=== PATIENT | female | born 1985 | race Caucasian/White ===

== ENCOUNTER → 2021-04-22 14:06 | Outpatient (CLI) | payer OTHER, SELFPAY ==
[2021-04-22 14:55] LABS: COVID19 -Nasal RAPID POSITIVE (Negative)
== END ==
PROVIDERS: Visit Provider Physician Assistant
DX: U07.1 COVID-19 (principal); Z20.822 Contact with and (suspected) exposure to COVID-19
CPT/HCPCS: 87635

== ENCOUNTER 2022-04-21 13:58 | Emergency (ER) | payer OTHER, SELFPAY ==
[2022-04-21 14:08] VITALS: BP 158/95; PULSE 98; RESP 17; TEMP 36.5; O2SAT 98; BMI 31.1
--- NOTE | 2022-04-21 14:17 | DI.RAD.S_ITS ---
PROCEDURE: XR CHEST 2V INDICATIONS: cough TECHNIQUE: 2 views of the chest were acquired. COMPARISON: None. FINDINGS: Surgical changes and devices: None. Lungs and pleura: Lungs are clear. No pleural effusions or pneumothorax. Mediastinum: Mediastinal contours are normal. Heart size is normal. Bones and chest wall: No suspicious bony abnormalities. Soft tissues appear unremarkable. IMPRESSION: No acute cardiopulmonary process demonstrated radiographically. Dictated by: Patrick Best M.D. on 04/21/2022 at 14:42 Approved by: Patrick Best M.D. on 04/21/2022 at 14:42
[2022-04-21 15:04] LABS: Influenza A - CEPHEID Flu A NEGATIVE (NEGATIVE); Influenza B - CEPHEID Flu B NEGATIVE (NEGATIVE); Respiratory Syncytial Virus Negative (Negative)
[2022-04-21 15:06] LABS: COVID-19 CEPHEID 4-PLEX PCR Negative (Negative)
--- NOTE | 2022-04-21 18:31 | ED_ITS ---
HPI - General Adult General Chief complaint: Upper Respiratory Symptoms Stated complaint: x7 chest pain, cant catch breath, Time Seen by Provider: 04/21/22 18:07 Source: patient Mode of arrival: Ambulatory History of Present Illness HPI narrative: 36-year-old female with a history of asthma who has had about 7 days of burning in her chest and coughing. She took a leftover Z-Elmer that she had at home because she thought that she had bronchitis but it did not improve any of her symptoms. She is still coughing and wheezing. No fevers. She came for chest x-ray to see if she had pneumonia. She has not been using her inhalers that she has at home. Related Data Home Medications Medication Instructions Recorded Confirmed fluoxetine 40 mg capsule (Prozac) mg PO DAILY ##0 09/15/16 04/22/21 levothyroxine 25 mcg tablet ##0 09/15/16 04/22/21 (Synthroid) norethindrone acetate 1 mg-ethinyl ##0 09/15/16 04/22/21 estradiol 20 mcg tablet (Loestrin) Allergies Allergy/AdvReac Type Severity Reaction Status Date / Time Penicillins [PENICILLINS] Allergy Unknown Verified 04/21/22 14:11 Review of Systems Constitutional Constitutional: Reports system reviewed and no additional complaints, except as documented Cardiovascular Cardiovascular: Reports system reviewed and no additional complaints, except as documented Respiratory Respiratory: Reports system reviewed and no additional complaints, except as documented Integumentary/Breasts Skin/Breast: Reports system reviewed and no additional complaints, except as documented Patient History Medical History Asthma Social History Smoking Status: Former smoker Smoking Status: Former smoker alcohol intake frequency: holidays/special occasions only Substance Use Type: does not use Exam Initial Vital Signs Initial Vital Signs: Vital Signs Temperature 97.7 F 04/21/22 14:08 Pulse Rate 98 H 04/21/22 14:08 Respiratory Rate 17 04/21/22 14:08 Blood Pressure 158/95 H 04/21/22 14:08 Pulse Oximetry 98 04/21/22 14:08 Oxygen Delivery Method 04/21/22 14:08 Const General: cooperative and comfortable Resp Effort & Inspection: normal respiratory effort Auscultation: clear to auscultation bilaterally Cardio Rate: regular rate Skin General: no rashes or lesions noted Neuro General: patient alert, patient awake and moves all extremities Course Orders Ordered: ED Orders 04/21/22 14:10 EKG-12 Lead Stat 04/21/22 14:11 EKG-12 Lead Routine 04/21/22 14:17 XR chest 2V Stat 04/21/22 14:18 Covid-19 + FLU A/B + RSV - PCR Stat Vital Signs Vital signs: Vital Signs - 8 hr 04/21/22 18:58 Pulse Rate 83 Respiratory Rate 19 Blood Pressure 157/91 H Pulse Oximetry 96 Oxygen Delivery Method Room Air Medical Decision Making Lab Data Lab results reviewed: Yes I reviewed the patient's lab results. Labs: Lab Results 04/21/22 Range/Units 14:18 SARS-CoV-2 (PCR) Negative (Negative) Influenza A (RT-PCR) Flu a negative (NEGATIVE) Influenza B (RT-PCR) Flu b negative (NEGATIVE) RSV (PCR) Negative (Negative) Imaging Data Chest x-ray: Radiologist's Impression: [place] [address] XRay Report Signed Patient: Ruby Santacruz MR#: [id number] : 1985 Acct:[id number] Age/Sex: 36 / F Date of Service: 04/21/22 Loc: Accession Number: [id number] ?? Procedure: XR chest 2V Ordering Provider: Maggie Nix D.O. PROCEDURE:? XR CHEST 2V ? INDICATIONS:? cough ? TECHNIQUE:? 2 views of the chest were acquired.? ? COMPARISON:? None. ? FINDINGS:? ? Surgical changes and devices:? None.? ? Lungs and pleura:? Lungs are clear.? No pleural effusions or pneumothorax.? ? Mediastinum:? Mediastinal contours are normal.? Heart size is normal.? ? Bones and chest wall:? No suspicious bony abnormalities.? Soft tissues appear unremarkable.? ? IMPRESSION:? No acute cardiopulmonary process demonstrated radiographically. ? ? Dictated by: Patrick Best M.D. on 04/21/2022 at 14:42 ? ? Approved by: Patrick Best M.D. on 04/21/2022 at 14:42 ECG Data Interpretation: Sinus rhythm Ventricular rate 98 Normal axis Normal QRS normal QTC No ST T wave changes MDM Narrative Medical decision making narrative: Chest x-ray is unremarkable. EKG is unremarkable. No signs of pneumonia. No indication for antibiotics. Lungs are clear. Provided reassurance to the patient. COVID flu RSV also negative. Hold on further workup for now. She was given return precautions and follow-up instructions. She expressed understanding and agreement Discharge Plan Departure Patient Disposition: Home Clinical Impression: Chest congestion Activity Restrictions/Additional Instructions: You can use your home inhaler as needed. Your chest x-ray today shows no signs of pneumonia. There is no indication to repeat any antibiotics. Return to the emergency department for any new or worsening symptoms. Prescriptions: No Action fluoxetine [Prozac] 40 MG capsule PO DAILY Qty: 0 levothyroxine [Synthroid] 25 MCG tablet Qty: 0 norethindrone ac-eth estradiol [Loestrin /20 (21)] 1 MG/20 MCG tablet Qty: 0 Referrals: Norma Smith MD [Primary Care Provider] -
[2022-04-21 18:58] VITALS: BP 157/91; PULSE 83; RESP 19; O2SAT 96
== END 2022-04-21 19:00 | disposition home or self-care (01) ==
PROVIDERS: Emergency Medicine; Emergency Provider Emergency Medicine
DX: R09.89 Other specified symptoms and signs involving the circulatory and respiratory systems (principal); R05.9 Cough, unspecified; Z20.822 Contact with and (suspected) exposure to COVID-19
CPT/HCPCS: 0241U; 71046; 93005; 99283; 99284

== ENCOUNTER 2023-07-02 18:33 | Emergency (ER) | payer OTHER, SELFPAY ==
[2023-07-02 19:07] VITALS: BP 138/90; PULSE 77; RESP 17; TEMP 36.7; O2SAT 99; BMI 31.1
[2023-07-02 22:04] VITALS: BP 132/85; PULSE 73; RESP 16; TEMP 36.8; O2SAT 99
--- NOTE | 2023-07-02 22:28 | ED_ITS ---
HPI - Pediatric HENT General Chief complaint: Ear Stated complaint: headache/L ear ringing/difficult hearing Time Seen by Provider: 07/02/23 22:26 Source: patient Mode of arrival: Ambulatory History of Present Illness HPI Narrative: Patient 38-year-old healthy female who presents today with left ear pain. She reports that she has had sore throat ongoing for a couple days. He was seen at walk-in clinic yesterday she would negative influenza RSV COVID test. She also had a negative strep test. She was complaining of some minor left ear pain that time but she says nobody looked in it. She is having increasing ear pain lost her hearing. No fever chills no cough or shortness of breath. Related Data Home Medications Medication Instructions Recorded Confirmed fluoxetine 40 mg capsule (Prozac) mg PO DAILY ##0 09/15/16 04/22/21 levothyroxine 25 mcg tablet ##0 09/15/16 04/22/21 (Synthroid) norethindrone acetate 1 mg-ethinyl ##0 09/15/16 04/22/21 estradiol 20 mcg tablet (Loestrin) Previous Rx's Medication Instructions Recorded azithromycin 250 mg tablet See Rx Instructions PO .COMPLEX #6 07/02/23 tabs Allergies Allergy/AdvReac Type Severity Reaction Status Date / Time Penicillins [PENICILLINS] AdvReac Unknown Hives Verified 07/02/23 19:07 Patient History Medical History Asthma Social History Smoking Status: Former smoker Smoking Status: Former smoker alcohol intake frequency: holidays/special occasions only Substance Use Type: does not use Pediatric Exam Initial Vital Signs Initial Vital Signs: Vital Signs Temperature 98.1 F 07/02/23 19:07 Pulse Rate 77 07/02/23 19:07 Respiratory Rate 17 07/02/23 19:07 Blood Pressure 138/90 07/02/23 19:07 Pulse Oximetry 99 07/02/23 19:07 Oxygen Delivery Method Room Air 07/02/23 19:07 GENERAL: Well-appearing, well-nourished and in no acute distress. HEENT: Head atraumatic,EOMI, pupils reactive, face symmetric, moist mucous membranes EARS: Right ear within normal limits tympanic membrane visualized. Left ear external exam is normal significant erythema fluid behind membrane PHARYNX: No erythema, no tonsillar exudate, no cervical lymphadenopathy CARDIOVASCULAR: Regular rate and rhythm without murmurs, rubs or gallops. RESPIRATORY: Breath sounds equal bilaterally, no wheezes rales or rhonchi. EXTREMITIES: Normal range of motion, no clubbing or edema. Neurovascularly intact NEUROLOGICAL: Alert and oriented x4.Normal gait and speech. SKIN: Warm, dry, no laceration, no petechiae, no rashes or lesions. Course Orders Ordered: Discontinued Medications Azithromycin (Azithromycin 250 Mg Tablet) 500 mg PO NOW ONE Stop: 07/02/23 22:34 Last Admin: 07/02/23 22:56 Dose: 500 mg Documented By: CANDELARIO Vital Signs Vital signs: Vital Signs - 8 hr 07/02/23 22:04 Temperature 98.3 F Pulse Rate 73 Respiratory Rate 16 Blood Pressure 132/85 Pulse Oximetry 99 Oxygen Delivery Method Room Air Medical Decision Making MDM Narrative Medical decision making narrative: Patient is a 38-year-old female overall well-appearing presents today with left ear pain. Progressively worsened today. On exam she does have an obvious otit is media. No evidence of sepsis. She had negative viral testing yesterday along with strep test. Will put her on azithromycin she has a penicillin allergy. Discharge Plan Departure Patient Disposition: Home Clinical Impression: Otitis media Instructions: Middle Ear Infection Activity Restrictions/Additional Instructions: *You have been diagnosed with ear infection *What to do: Antibiotics will take a couple of days took again but you should notice some improvement. *Continue to take medications as directed Azithromycin take as directed Tylenol Motrin as needed for pain *Follow up with your primary care provider in 2-3 days or call [phone] *Return to ER if you should have increasing pain fever chills or any new, worsening or concerning symptoms Prescriptions: New azithromycin 250 mg tablet See Rx Instructions PO .COMPLEX Qty: 6 0RF Rx Instructions: For 250 mg dose pack: take 500 mg today (day 1), then 250 mg for 4 days (days 2-5) No Action fluoxetine [Prozac] 40 MG capsule PO DAILY Qty: 0 levothyroxine [Synthroid] 25 MCG tablet Qty: 0 norethindrone ac-eth estradiol [Loestrin 05/11 (21)] 1 MG/20 MCG tablet Qty: 0 Referrals: Norma Smith MD [Primary Care Provider] - Stand Alone Forms: Patient Portal/API
[2023-07-02] MEDS: AZITHROMYCIN 250 MG TABLET 500 MG PO (22:56)
== END 2023-07-02 23:04 | disposition home or self-care (01) ==
PROVIDERS: Emergency Provider Emergency Medicine
DX: H66.92 Otitis media, unspecified, left ear (principal); Z87.891 Personal history of nicotine dependence
CPT/HCPCS: 99283